=== PATIENT | male | born 1950 | race Caucasian/White ===

== ENCOUNTER 2018-09-07 15:37 | Emergency (ER) | payer MEDICARE ==
--- NOTE | 2018-09-07 16:02 | ED.PDOC ---
History of Present Illness - General Chief Complaint: GI Problem Stated Complaint: black stools Time Seen by Provider: 09/07/18 15:46 Information Source: patient, family Exam Limitations: no limitations - History of Present Illness Initial Comments: patient comes in today for 1 day history of loose stools and abdominal cramping. Patient states he thought that was probably just a bug and was not concerned until he passed some black stools today. Patient was worried that it could be bleeding. He does not have any overt abdominal pain, nausea or vomiting. He does state he took some [id number] Kaopectate earlier today prior to the black stool. He has no other acute complaints including no fever, chills, nausea or vomiting. Abdominal Pain Onset Location: generalized abdomen Pain Radiation: no radiation Quality: mild, cramping Timing/Duration: 7-24 hours Improving Factors: nothing Worsening Factors: nothing Associated Symptoms: diarrhea Review of Systems - Review of Systems Constitutional: States: no symptoms reported. Denies: chills, fever EENTM: States: no symptoms reported. Denies: eye pain, ear pain, nose congestion Respiratory: States: no symptoms reported. Denies: cough, short of breath Cardiology: States: no symptoms reported. Denies: chest pain, palpitations Gastrointestinal/Abdominal: States: see HPI, abdominal pain, diarrhea Past Medical History (General) - Patient Medical History Hx Stroke: No Hx Congestive Heart Failure: No Hx Hypertension: Yes Hx Diabetes: No Hx MRSA: No - Vaccination History Hx Influenza Vaccination: Yes - 2017 Hx Pneumococcal Vaccination: Yes - Social History Hx Tobacco Use: Yes - Quit 2004 Hx Alcohol Use: Yes - Social Family Medical History - Family History Father Living Status: Hx Family Congestive Heart Failure: Yes Physical Exam - Physical Exam General Appearance: Alert, Comfortable, No apparent distress Eyes, Ears, Nose, Throat Exam: PERRL/EOMI, normal ENT inspection, TMs normal Neck: non-tender, full range of motion, supple, normal inspection Respiratory: chest non-tender, lungs clear, normal breath sounds, no respiratory distress Cardiovascular/Chest: normal peripheral pulses, regular rate, rhythm, no edema, no gallop, no murmur Peripheral Pulses: No deficit Gastrointestinal/Abdominal: normal bowel sounds, non tender, soft, no organomegaly, no pulsatile mass Back Exam: normal inspection Extremity: normal range of motion Neurologic: alert, oriented x 3 Progress - Results/Orders Results/Orders: Laboratory Results WBC 8.1 K/mm3 (4.8-10.8) 09/07/18 15:46 RBC 4.41 M/mm3 (4.70-6.10) L 09/07/18 15:46 Hgb 12.8 gm/dL (14.0-18.0) L 09/07/18 15:46 Hct 38.3 % (42.0-52.0) L 09/07/18 15:46 MCV 86.9 fl (80.0-94.0) 09/07/18 15:46 MCH 28.9 pg (27.0-31.0) 09/07/18 15:46 MCHC 33.3 g/dL (33.0-37.0) 09/07/18 15:46 RDW 15.1 % (11.5-14.5) H 09/07/18 15:46 Plt Count 320 K/mm3 (130-400) 09/07/18 15:46 MPV 6.5 fl (7.40-10.4) L 09/07/18 15:46 Absolute Neuts (auto) 6.10 K/uL (1.8-6.8) 09/07/18 15:46 Absolute Lymphs (auto) 1.40 K/uL (1.0-3.4) 09/07/18 15:46 Absolute Monos (auto) 0.40 K/uL (0.2-0.8) 09/07/18 15:46 Absolute Eos (auto) 0.00 K/uL (0.0-0.4) 09/07/18 15:46 Absolute Basos (auto) 0.00 K/uL (0.0-0.1) 09/07/18 15:46 Neutrophils % 75.9 % (42.0-78.0) 09/07/18 15:46 Lymphocytes % 17.9 % (20.0-50.0) L 09/07/18 15:46 Monocytes % 5.5 % (2.0-9.0) 09/07/18 15:46 Eosinophils % 0.2 % (1.0-5.0) L 09/07/18 15:46 Basophils % 0.5 % (0.0-2.0) 09/07/18 15:46 Stool Occult Blood Negative (NEGATIVE) 09/07/18 16:17 Departure - Departure Clinical Impression: Acute diarrhea Disposition: Discharge to Home or Self Care Condition: Good Departure Forms: ED Discharge - Pt. Copy, Patient Portal Self Enrollment Diet: bland diet Referrals: WERO RAWLS [Primary Care Provider] - 1-2 Weeks Home Medications: Ambulatory Orders ALPRAZolam [Xanax] 0.5 mg PO Q8H PRN #5 tab 07/06/18 Azithromycin 500 mg PO DAILY #5 tab 07/06/18 predniSONE [Prednisone] 20 mg PO DAILY #3 tab 07/06/18 Additional Instructions: slow return to normal diet. Return to ER for severe pain, intractable emesis.
[2018-09-07 16:19] VITALS: BP 154/87
[2018-09-07 17:08] VITALS: TEMP 98.1
[2018-09-07 18:53] VITALS: O2SAT 96
== END 2018-09-07 16:45 | disposition home or self-care (01) ==
LOC: ER 15:37
DX: R19.7 Diarrhea, unspecified (principal); I10 Essential (primary) hypertension; Z87.891 Personal history of nicotine dependence

== ENCOUNTER 2018-09-18 20:26 | Emergency (ER) | payer MEDICARE ==
[2018-09-18] MEDS: CYCLOBENZAPRINE HCL 10 MG TAB PO ONE (21:18)
[2018-09-18] MEDS: predniSONE 20 MG TAB PO ONE (21:19)
[2018-09-18 21:46] VITALS: TEMP 98.1
[2018-09-18 22:15] VITALS: O2SAT 97
--- NOTE | 2018-09-18 22:37 | RAD ---
EXAM: XR Lumbar Spine, 2 or 3 Views CLINICAL HISTORY: 68 years old and is Male; recurrent radiculopathy TECHNIQUE: Frontal and lateral views of the lumbar spine. COMPARISON: No relevant prior studies available. FINDINGS: Limitations: None. Vertebrae: Posterior fusion hardware throughout the entire visualized thoracolumbar spine into the sacrum intact. Diffuse facet arthrosis present. There is diffuse spondylosis present. No acute fracture. Normal alignment. Disc spaces: There is diffuse mild disc space narrowing. Soft tissues: Unremarkable. IMPRESSION: Chronic changes as above. No acute disease. Electronically signed by: Damaris Vizcarra MD 09/18/2018 10:35 PM CDT
--- NOTE | 2018-09-18 22:46 | ED.PDOC ---
History of Present Illness - General Chief Complaint: Back Pain or Injury Stated Complaint: Low back pain with radiation to legs numbness feet Time Seen by Provider: 09/18/18 20:28 Source: patient Exam Limitations: no limitations - History of Present Illness Initial Comments: The patient is a 68-year-old male presented to emergency room secondary toa mild recurrence of his presurgical symptoms of peripheral neuropathy including some burning in his right foot more than his left as well as in very mild feeling of weakness in the right lower extremity. No falls. No injury though he was up on his feet most of the day yesterday. No incontinence. He has had some mild aching in his low back. He had surgery on the entirety of his lumbar spine back in May. He has done fairly well since that time Timing/Duration: 24 hours Severity: mild Improving Factors: nothing Worsening Factors: nothing Associated Symptoms: denies symptoms Allergies/Adverse Reactions: Allergies Codeine Allergy (Verified 09/18/18 20:49) Home Medications: Ambulatory Orders Lisinopril & Hydrochlorothiazi [Lisinopril/Hctz 10-12.5 mg] 1 tab PO DAILY 09/07/18 Methocarbamol [Robaxin] 750 mg PO Q4H PRN 09/07/18 Omeprazole Magnesium [Prilosec Otc] 20 mg PO DAILY 09/07/18 Sucralfate 1 gm PO ACHS 09/07/18 Cyclobenzaprine HCl [Flexeril] 10 mg PO TID PRN #20 tab 09/18/18 predniSONE [Prednisone] 20 mg PO DAILY #5 tab 09/18/18 Review of Systems - Review of Systems Constitutional: States: no symptoms reported EENTM: States: no symptoms reported Respiratory: States: no symptoms reported Cardiology: States: no symptoms reported Gastrointestinal/Abdominal: States: no symptoms reported Genitourinary: States: no symptoms reported Musculoskeletal: States: no symptoms reported Skin: States: no symptoms reported Neurological: States: see HPI Endocrine: States: no symptoms reported Hematologic/Lymphatic: States: no symptoms reported All other Systems: No Change from Baseline Past Medical History (General) - Patient Medical History Hx Seizures: No Hx Stroke: No Hx Dementia: No Hx Asthma: No Hx of COPD: No Hx Cardiac Disorders: No Hx Congestive Heart Failure: No Hx Pacemaker: No Hx Hypertension: Yes Hx Thyroid Disease: No Hx Diabetes: No Hx Gastroesophageal Reflux: No Hx Renal Disease: No Hx Cancer: No Hx of HIV: No Hx Hepatitis C: No Hx MRSA: No - Vaccination History Hx Tetanus, Diphtheria Vaccination: No Hx Influenza Vaccination: Yes - 2018 Hx Pneumococcal Vaccination: Yes Immunizations Up to Date: No - Social History Hx Tobacco Use: Yes - Quit 2005 Hx Alcohol Use: Yes - Social Hx Substance Use: No Hx Substance Use Treatment: No Hx Depression: No Feels Threatened In Home Enviroment: No Feels Threatened In a Relationship: No Hx Physical Abuse: No Hx Emotional Abuse: No Hx Suspected Abuse: No - Activities of Daily Living Hospice Agency (if applicable):: None - Female History Patient is a Female of Child Bearing Age (10 -59 yrs old): No - Triage Comment ED Triage Comment: Pt has sx in May of this year and now is having pain Family Medical History - Family History Father Living Status: Hx Family Congestive Heart Failure: Yes Physical Exam - Physical Exam General Appearance: Alert, Anxious, Comfortable, No apparent distress Eye Exam: bilateral normal Ears, Nose, Throat: hearing grossly normal, normal pharynx Neck: non-tender, supple Respiratory: lungs clear, normal breath sounds, no respiratory distress, no accessory muscle use Cardiovascular/Chest: normal peripheral pulses, no edema, other - egular rate Peripheral Pulses: radial,right: 2+, radial,left: 2+, dorsalis pedis,right: 2+, dorsalis pedis,left: 2+ Gastrointestinal/Abdominal: non tender, soft Rectal Exam: deferred Back Exam: other - scarring present from previous surgery. No real point tenderness. No erythema. No obvious deformity. 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 Skin Exam: normal color Comments: Vital Signs - 24 hr 09/18/18 09/18/18 09/18/18 20:30 21:27 22:00 Temperature 98.1 F Pulse Rate [ 86 77 74 monitor] Respiratory 20 20 20 Rate Blood Pressure 132/87 149/94 133/90 [Left Arm] O2 Sat by Pulse 98 96 97 Oximetry Progress - Progress Progress: 09/18/18 22:46 the patient is a 68-year-old male presenting with a recurrence of some of his chronic neuropathic signs that he had prior to surgery. X-ray of the lumbar spine shows no evidence of any acute pathology. Hardware appears to be in place. He does have numerous chronic changes. This is most likely related to overuse yesterday and mild inflammation. He is going to be placed on prednis one 20 mg daily for 5 days and Flexeril for as needed use as a muscle relaxer. He does need to be careful as this can make him drowsy. A heat pad topically may also help. He does need to keep follow-up with his neurosurgeon next week. ER warnings were given for any worsening. Departure - Departure Clinical Impression: Neuropathy, lower extremity Qualifiers: Laterality: bilateral Qualified Code(s): G57.93 - Unspecified mononeuropathy of bilateral lower limbs Disposition: Discharge to Home or Self Care Condition: Fair Departure Forms: ED Discharge - Pt. Copy, Patient Portal Self Enrollment Instructions: DI for Back Pain With Sciatica Diet: regular diet Activity: increase activity as tolerated Referrals: WERO RAWLS [Primary Care Provider] - 1-2 Weeks Prescriptions: Cyclobenzaprine HCl [Flexeril] 10 mg PO TID PRN #20 tab PRN Reason: Muscle Spasms predniSONE [Prednisone] 20 mg PO DAILY #5 tab Home Medications: Ambulatory Orders Lisinopril & Hydrochlorothiazi [Lisinopril/Hctz 10-12.5 mg] 1 tab PO DAILY 09/07/18 Methocarbamol [Robaxin] 750 mg PO Q4H PRN 09/07/18 Omeprazole Magnesium [Prilosec Otc] 20 mg PO DAILY 09/07/18 Sucralfate 1 gm PO ACHS 09/07/18 Cyclobenzaprine HCl [Flexeril] 10 mg PO TID PRN #20 tab 09/18/18 predniSONE [Prednisone] 20 mg PO DAILY #5 tab 09/18/18 Additional Instructions: the patient is a 68-year-old male presenting with a recurrence of some of his chronic neuropathic signs that he had prior to surgery. X-ray of the lumbar spine shows no evidence of any acute pathology. Hardware appears to be in place. He does have numerous chronic changes. This is most likely related to overuse yesterday and mild inflammation. He is going to be placed on prednisone 20 mg daily for 5 days and Flexeril for as needed use as a muscle relaxer. He does need to be careful as this can make him drowsy. A heat pad topically may also help. He does need to keep follow-up with his neurosurgeon next week. ER warnings were given for any worsening.
[2018-09-18 23:09] VITALS: BP 140/88
== END 2018-09-18 23:09 | disposition home or self-care (01) ==
LOC: ER 20:26
DX: G57.93 Unspecified mononeuropathy of bilateral lower limbs (principal); M54.5 Low back pain; I10 Essential (primary) hypertension; Z98.890 Other specified postprocedural states; Z87.891 Personal history of nicotine dependence; Z79.899 Other long term (current) drug therapy; Z88.5 Allergy status to narcotic agent
CPT/HCPCS: 72100; J7512

== ENCOUNTER 2018-12-07 12:15 | Emergency (ER) | payer MEDICARE ==
--- NOTE | 2018-12-07 13:55 | CT ---
EXAM: CT Lumbar Spine Without Intravenous Contrast CLINICAL HISTORY: pain TECHNIQUE: Axial computed tomography images of the lumbar spine without intravenous contrast. Sagittal and coronal reformatted images were created and reviewed. This CT exam was performed using one or more of the following dose reduction techniques: automated exposure control, adjustment of the mA and/or kV according to patient size, and/or use of iterative reconstruction technique. COMPARISON: No relevant prior studies available. FINDINGS: Limitations: None. Vertebrae: No acute fracture. Discs/spinal canal/neural foramina: Artifact limits assessment of the canal. Posterior fusion rods and screws noted at all levels. There is straightening of the normal lumbar curvature. Bone graft material noted posteriorly at all levels. L4 and L5 right laminectomy defects noted. There is vacuum disc degenerative changes L4-L5. Mild narrowing L5-S1. Soft tissues: Unremarkable. Stomach and bowel: Colonic diverticulosis present. IMPRESSION: Artifact limits assessment of the canal. No gross acute change. Postoperative and chronic changes as above. Electronically signed by: Damaris Vizcarra MD 12/07/2018 1:53 PM CDT
--- NOTE | 2018-12-07 14:07 | ED.PDOC ---
History of Present Illness - General Chief Complaint: Back Pain or Injury Time Seen by Provider: 12/07/18 12:42 - History of Present Illness Initial Comments: c/o acute on chronic back pain since this morning with some muscle spasm Timing/Duration: 4-6 hours Quality/Severity: moderate Back Pain Location: lumbar spine Back Pain Radiation: lower legs Worsening Factors: nothing Associated Symptoms: denies symptoms Allergies/Adverse Reactions: Allergies Codeine Allergy (Verified 12/07/18 12:46) Nausea Home Medications: Ambulatory Orders Lisinopril & Hydrochlorothiazi [Lisinopril/Hctz 10-12.5 mg] 1 tab PO DAILY 09/07/18 Omeprazole Magnesium [Prilosec Otc] 20 mg PO DAILY 09/07/18 Baclofen 20 mg PO TID #12 tab 12/07/18 Citalopram Hydrobromide [Citalopram] 10 mg PO DAILY 12/07/18 Gabapentin 300 mg PO BID 12/07/18 LORazepam [Ativan] 1 mg PO BID PRN 12/07/18 Review of Systems - Review of Systems Constitutional: States: no symptoms reported EENTM: States: no symptoms reported Respiratory: States: no symptoms reported Cardiology: States: no symptoms reported Gastrointestinal/Abdominal: States: no symptoms reported Genitourinary: States: no symptoms reported Musculoskeletal: States: see HPI Skin: States: no symptoms reported Neurological: States: no symptoms reported Endocrine: States: no symptoms reported Past Medical History (General) - Patient Medical History Hx Seizures: No Hx Stroke: No Hx Dementia: No Hx Asthma: No Hx of COPD: No Hx Cardiac Disorders: No Hx Congestive Heart Failure: No Hx Pacemaker: No Hx Hypertension: Yes Hx Thyroid Disease: No Hx Diabetes: No Hx Gastroesophageal Reflux: Yes Hx Renal Disease: No Hx Cancer: No Hx of HIV: No Hx Hepatitis C: No Hx MRSA: No Surgical History: other - Vaccination History Hx Tetanus, Diphtheria Vaccination: No Hx Influenza Vaccination: Yes - 2017 Hx Pneumococcal Vaccination: Yes - 2018 - Social History Hx Tobacco Use: Yes - Quit 2007 Hx Alcohol Use: No Hx Substance Use: No Hx Substance Use Treatment: No Hx Depression: No Hx Physical Abuse: No Hx Emotional Abuse: No Hx Suspected Abuse: No Family Medical History - Family History Father Living Status: Hx Family Congestive Heart Failure: Yes Physical Exam - Physical Exam General Appearance: Alert Neck Exam: non-tender, full range of motion, normal alignment Cardiovascular/Respiratory: no M/R/G Gastrointestinal/Abdominal: non tender Back Exam: normal inspection, no CVA tenderness, no vertebral tenderness Extremity Exam: no evidence of injury, normal range of motion Neurologic: no motor/sensory deficits, alert, normal mood/affect, oriented x 3 Skin Exam: normal color Departure - Departure Clinical Impression: Acute back pain Time of Disposition: 14:07 Disposition: Discharge to Home or Self Care Condition: Good Departure Forms: ED Discharge - Pt. Copy, Patient Portal Self Enrollment Activity: increase activity as tolerated, walking as tolerated Referrals: WERO RAWLS [Primary Care Provider] - 1-2 Weeks Prescriptions: Baclofen 20 mg PO TID #12 tab Home Medications: Ambulatory Orders Lisinopril & Hydrochlorothiazi [Lisinopril/Hctz 10-12.5 mg] 1 tab PO DAILY 09/07/18 Omeprazole Magnesium [Prilosec Otc] 20 mg PO DAILY 09/07/18 Baclofen 20 mg PO TID #12 tab 12/07/18 Citalopram Hydrobromide [Citalopram] 10 mg PO DAILY 12/07/18 Gabapentin 300 mg PO BID 12/07/18 LORazepam [Ativan] 1 mg PO BID PRN 12/07/18
[2018-12-07 14:51] VITALS: BP 142/88; TEMP 97.5; O2SAT 96
== END 2018-12-07 14:33 | disposition home or self-care (01) ==
LOC: ER 12:15
DX: M54.5 Low back pain (principal); G89.29 Other chronic pain; I10 Essential (primary) hypertension; K21.9 Gastro-esophageal reflux disease without esophagitis; Z87.891 Personal history of nicotine dependence; Z79.899 Other long term (current) drug therapy; Z88.5 Allergy status to narcotic agent

== ENCOUNTER 2019-08-22 21:15 | Emergency (ER) | payer MEDICARE ==
--- NOTE | 2019-08-22 21:26 | ED.PDOC ---
History of Present Illness - General Time Seen by Provider: 08/22/19 21:23 Source: patient, RN notes reviewed, Vital Signs reviewed Additional Information: This is a 69-year-old male patient, presented with atraumatic right foot pain. Patient stated that this happens to him often and that he was told that he had a bone spur on his heel, at the moment patient denies any fever chills coughing denies any trauma. Patient said that for the past 5 days he stopped his pain got underneath the lateral malleolus and on the heel on the right foot very similar as when he was diagnosed with a bone spur, Patient does not appear any distress Stated that last time he had the same problem he was given steroids and that helped with his pain - History of Present Illness Occurred: other - 5 days Pain - Lower Extremity: mild: Right Ankle, Left Foot Method of Injury: other - no injury Improving Factors: nothing Worsening Factors: nothing Allergies/Adverse Reactions: Allergies Codeine Allergy (Verified 12/07/18 12:46) Nausea Home Medications: Ambulatory Orders Lisinopril & Hydrochlorothiazi [Lisinopril/Hctz 10-12.5 mg] 1 tab PO DAILY 09/07/18 Citalopram Hydrobromide [Citalopram] 10 mg PO DAILY 12/07/18 Gabapentin 300 mg PO BID 12/07/18 LORazepam [Ativan] 1 mg PO BID PRN 12/07/18 Methylprednisolone [Medrol Dose Julian] 4 mg PO DAILY 6 Days #21 tab 08/22/19 Review of Systems - Review of Systems Constitutional: States: no symptoms reported EENTM: States: no symptoms reported Respiratory: States: no symptoms reported Cardiology: States: no symptoms reported Gastrointestinal/Abdominal: States: no symptoms reported Genitourinary: States: no symptoms reported Musculoskeletal: States: no symptoms reported Skin: States: no symptoms reported Neurological: States: no symptoms reported Endocrine: States: no symptoms reported Hematologic/Lymphatic: States: no symptoms reported Past Medical History (General) - Patient Medical History Hx Seizures: No Hx Stroke: No Hx Dementia: No Hx Asthma: No Hx of COPD: No Hx Cardiac Disorders: No Hx Congestive Heart Failure: No Hx Pacemaker: No Hx Hypertension: Yes Hx Thyroid Disease: No Hx Diabetes: No Hx Gastroesophageal Reflux: Yes Hx Renal Disease: No Hx Cancer: No Hx of HIV: No Hx Hepatitis C: No Hx MRSA: No - Vaccination History Hx Tetanus, Diphtheria Vaccination: No Hx Influenza Vaccination: Yes - 2018 Hx Pneumococcal Vaccination: Yes - 2018 - Social History Hx Tobacco Use: Yes - Quit 2007 Hx Alcohol Use: No Hx Substance Use: No Hx Substance Use Treatment: No Hx Depression: No Hx Physical Abuse: No Hx Emotional Abuse: No Hx Suspected Abuse: No Family Medical History - Family History Father Living Status: Hx Family Congestive Heart Failure: Yes Physical Exam - Physical Exam General Appearance: Well Developed, Well Groomed, Well Hydrated, Well Nourished Eyes, Ears, Nose, Throat: PERRL/EOMI, normal ENT inspection, TMs normal, pharynx normal Neck: non-tender, full range of motion, supple Cardiovascular/Respiratory: regular rate, rhythm, no M/R/G, normal peripheral pulses, no JVD, normal breath sounds, no respiratory distress Gastrointestinal/Abdominal: non-tender, no organomegaly, no hernia Back: normal inspection, no CVA tenderness, no vertebral tenderness Ankle: soft tissue tenderness, swelling Foot: normal inspection, non-tender, no evidence of injury, normal ROM Neuro/Tendon: normal sensation, normal motor functions, normal tendon functions Mental Status: alert, oriented x 3 Skin: normal color Progress - Progress Progress: Semination patient right foot good pulses good capillary refill no calf tenderness no erythema no evidence of cellulitis or infection, there is some mild tenderness or point tenderness at the heel and lateral malleolus area. Patient x-ray show a confirmed the presence of a bone spur on the heel, I do not see any fractures or dislocations Patient will be discharged home with Medrol pack and I would recommend follow-up with regulatory technician soon as possible 08/22/19 21:32 Departure - Departure Clinical Impression: Foot pain Qualifiers: Laterality: right Qualified Code(s): M79.671 - Pain in right foot Disposition: Discharge to Home or Self Care Condition: Good Instructions: Heel Spurs, Heel Spurs (DC) Diet: resume usual diet Referrals: WERO RAWLS [Primary Care Provider] - 1-2 Weeks Prescriptions: Methylprednisolone [Medrol Dose Julian] 4 mg PO DAILY 6 Days #21 tab Home Medications: Ambulatory Orders Lisinopril & Hydrochlorothiazi [Lisinopril/Hctz 10-12.5 mg] 1 tab PO DAILY 07/14/19 Citalopram Hydrobromide [Citalopram] 10 mg PO DAILY 12/07/18 Gabapentin 300 mg PO BID 12/07/18 LORazepam [Ativan] 1 mg PO BID PRN 12/07/18 Methylprednisolone [Medrol Dose Julian] 4 mg PO DAILY 6 Days #21 tab 08/22/19 Additional Instructions: keep the foot elevated and follow up with regulatory technician
[2019-08-22 21:31] VITALS: BP 131/70; TEMP 97.4; O2SAT 96
--- NOTE | 2019-08-22 21:44 | RAD ---
XR FOOT 1-2 VIEWS CLINICAL STATEMENT: pain COMPARISON: None FINDINGS: Bony alignment is anatomic. There is no fracture or dislocation. The soft tissues are unremarkable. Mild retrocalcaneal spurring. IMPRESSION: No fracture. Electronically signed by: Cuong Vega MD 08/22/2019 9:42 PM CDT
== END 2019-08-22 21:35 | disposition home or self-care (01) ==
LOC: ER 21:15
DX: M79.671 Pain in right foot (principal); I10 Essential (primary) hypertension

== ENCOUNTER 2020-01-27 12:36 | Emergency (ER) | payer MEDICARE ==
--- NOTE | 2020-01-27 13:03 | ED.PDOC ---
History of Present Illness - General Chief Complaint: Skin/Abrasion/Tear Stated Complaint: rash Time Seen by Provider: 01/27/20 13:00 Source: patient Exam Limitations: no limitations - History of Present Illness Initial Comments: The patient is a 69-year-old male presented emergency room secondary to a rash to the left upper anterior chest wall about 8 cm in diameter. It is maculopapular with mild scaling. He reports it is pruritic. It does not burn significantly. There is no linear extension is in a dermatome at this point. No fever. It has been present for about 6 days or so. No evidence of superimposed bacterial infection. No other areas on his body consistent with this. Timing/Duration: other - 6 days Severity: mild Improving Factors: nothing Worsening Factors: nothing Associated Symptoms: denies symptoms Allergies/Adverse Reactions: Allergies Codeine Allergy (Verified 12/07/18 12:46) Nausea Home Medications: Ambulatory Orders Lisinopril & Hydrochlorothiazi [Lisinopril/Hctz 10-12.5 mg] 1 tab PO DAILY 09/07/18 Citalopram Hydrobromide [Citalopram] 10 mg PO DAILY 12/07/18 Gabapentin 300 mg PO BID 12/07/18 LORazepam [Ativan] 1 mg PO BID PRN 12/07/18 Methylprednisolone [Medrol Dose Julian] 4 mg PO DAILY 6 Days #21 tab 08/22/19 Review of Systems - Review of Systems Constitutional: States: no symptoms reported EENTM: States: no symptoms reported Respiratory: States: no symptoms reported Cardiology: States: no symptoms reported Gastrointestinal/Abdominal: States: no symptoms reported Genitourinary: States: no symptoms reported Musculoskeletal: States: no symptoms reported Skin: States: see HPI Neurological: States: no symptoms reported Endocrine: States: no symptoms reported All other Systems: No Change from Baseline Past Medical History (General) - Patient Medical History Hx Seizures: No Hx Stroke: No Hx Dementia: No Hx Asthma: No Hx of COPD: No Hx Cardiac Disorders: No Hx Congestive Heart Failure: No Hx Pacemaker: No Hx Hypertension: Yes Hx Thyroid Disease: No Hx Diabetes: No Hx Gastroesophageal Reflux: Yes Hx Renal Disease: No Hx Cancer: No Hx of HIV: No Hx Hepatitis C: No Hx MRSA: No - Vaccination History Hx Tetanus, Diphtheria Vaccination: No Hx Influenza Vaccination: Yes Hx Pneumococcal Vaccination: Yes - Social History Hx Tobacco Use: Yes Hx Chewing Tobacco Use: No Hx Alcohol Use: No Hx Substance Use: No Hx Substance Use Treatment: No Hx Depression: No Hx Physical Abuse: No Hx Emotional Abuse: No Hx Suspected Abuse: No Family Medical History - Family History Father Family History: Unknown Living Status: Hx Family Congestive Heart Failure: Yes Physical Exam - Physical Exam General Appearance: Alert, Comfortable, No apparent distress Eye Exam: bilateral normal Ears, Nose, Throat: hearing grossly normal - Chronically decreased bilaterally Respiratory: chest non-tender, lungs clear, normal breath sounds, no respiratory distress, no accessory muscle use Cardiovascular/Chest: normal peripheral pulses, no edema, other - Regular rate Peripheral Pulses: radial,right: 2+, radial,left: 2+ Rectal Exam: deferred Back Exam: normal inspection, no vertebral tenderness Extremity: non-tender, no pedal edema, normal capillary refill 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 He does not appear to be too severe at this point and should be adequately treatable with a topical steroid. I recommend hydrocortisone 10 to be applied 3-4 times daily for the next 3 to 4 days, followed by a topical hydrating lotion such as Vaseline intensive care or Cetaphil after that. ER warnings are given for any significant worsening. Keep routine follow-up with primary care doctor otherwise. [email or web address] [id number] Departure - Departure Clinical Impression: Contact dermatitis Qualifiers: Contact dermatitis type: unspecified Contact dermatitis trigger: unspecified trigger Qualified Code(s): L25.9 - Unspecified contact dermatitis, unspecified cause Disposition: Discharge to Home or Self Care Condition: Fair Departure Forms: ED Discharge - Pt. Copy, Patient Portal Self Enrollment Instructions: DI for Abrasion, Contact Dermatitis (DC) Diet: regular diet Activity: increase activity as tolerated Referrals: WERO RAWLS [Primary Care Provider] - 1-2 Weeks Home Medications: Ambulatory Orders Lisinopril & Hydrochlorothiazi [Lisinopril/Hctz 10-12.5 mg] 1 tab PO DAILY 09/07/18 Citalopram Hydrobromide [Citalopram] 10 mg PO DAILY 12/07/18 Gabapentin 300 mg PO BID 12/07/18 LORazepam [Ativan] 1 mg PO BID PRN 12/07/18 Methylprednisolone [Medrol Dose Julian] 4 mg PO DAILY 6 Days #21 tab 08/22/19 Additional Instructions: The patient is a 69-year-old male presented emergency room with a rash to the left anterior chest wall that is most consistent with a contact dermatitis. He does not appear to be too severe at this point and should be adequately treatable with a topical steroid. I recommend hydrocortisone 10 to be applied 3-4 times daily for the next 3 to 4 days, followed by a topical hydrating lotion such as Vaseline intensive care or Cetaphil after that. ER warnings are given for any significant worsening. Keep routine follow-up with primary care doctor otherwise.
[2020-01-27 13:32] VITALS: BP 145/84; TEMP 98.1; O2SAT 96
== END 2020-01-27 13:10 | disposition home or self-care (01) ==
LOC: ER 12:36
DX: L25.9 Unspecified contact dermatitis, unspecified cause (principal); I10 Essential (primary) hypertension; K21.9 Gastro-esophageal reflux disease without esophagitis; Z87.891 Personal history of nicotine dependence; Z79.899 Other long term (current) drug therapy; Z88.5 Allergy status to narcotic agent